=== PATIENT | male | born 1950 | race Caucasian/White ===

== ENCOUNTER 2017-10-17 07:07 | Day surgery (SDC) | payer OTHER, MEDICARE ==
[2017-10-17] MEDS: Lactated Ringers 1,000 ML IV SCH (07:51)
[2017-10-17] MEDS ORDERED: Propofol 200 MG/20 ML SDV ONE (09:00)
[2017-10-17] MEDS ORDERED: fentaNYL 100 MCG/2 ML SDV ONE (09:00)
--- NOTE | 2017-10-17 14:00 | OR ---
DATE OF SURGERY: 10/17/2017 REFERRING PROVIDER: Saud Bravo M.D. PRE-OPERATIVE DIAGNOSES: Positive FIT stool card. This is the patient's first colonoscopy. There is no known family history of colon cancer. POST-OPERATIVE DIAGNOSES: 1. Minimal sigmoid diverticulosis. 2. Minimal internal hemorrhoids. PROCEDURE: Colonoscopy. SURGEON: Alexi Cannon M.D. ANESTHESIA: Monitored anesthesia care. BOWEL PREP: Good. Ty is a 67-year-old male who was brought to the endoscopy suite after discussing risks and benefits of the procedure. Informed consent was obtained for conscious sedation and colonoscopy with or without biopsy and/or polypectomy. We also discussed possibility of missed lesions. Pre-procedure exam was unremarkable. IV, oxygen, and monitors were placed. The patient was placed in the left lateral decubitus position. Sedation was administered and a digital rectal exam was performed which was unremarkable. Colonoscope was passed into the rectum and slowly advanced all the way to the cecum. Cecum was viewed and photographed. The colonoscope was slowly withdrawn and the mucosa was closed observed in a direct circumferential manner. The ascending colon was unremarkable. The transverse colon was unremarkable. The descending colon was unremarkable. The sigmoid colon did reveal some minimal diverticulosis. Retroflexion was performed and rectal mucosa revealed some minimal internal hemorrhoids, not acutely inflamed. Scope was removed. The patient tolerated the procedure well. The patient was monitored until that baseline status. Discharge instructions were reviewed and the patient was discharged in good condition. COMPLICATIONS: None. TOTAL TIME: 19 minutes. ESTIMATED BLOOD LOSS: None. RECOMMENDATIONS/FOLLOW-UP: Normal colonoscopy. I recommend repeating colonoscopy in 10 years, barring any interim change in family history. I would like to kindly thank Dr. Bravo for this referral. DMB: 10/17/2017 09:54:43 MODL: 10/17/2017 13:53:07 /[id number]
== END 2017-10-17 10:40 | disposition home or self-care (01) ==
LOC: VM.SDS 07:07
PROVIDERS: ATTEND Family Medicine
DX: K57.30 Diverticulosis of large intestine without perforation or abscess without bleeding (principal); K64.8 Other hemorrhoids; E78.5 Hyperlipidemia, unspecified; N40.0 Benign prostatic hyperplasia without lower urinary tract symptoms; Z79.899 Other long term (current) drug therapy
CPT/HCPCS: J2704; J3010; J7120